=== PATIENT | female | born 1995 | race Caucasian/White ===

== ENCOUNTER 2018-10-14 20:50 | Emergency (ER) | payer MEDICAID ==
[~2018-10-14] VITALS: Ht 162.6 cm; Wt 86.0 kg
[2018-10-14 20:57] VITALS: BP 108/73
[2018-10-14 22:08] LABS: BASOPHILS % (AUTO) 1 % (0-1); EOSINOPHILS # (AUTO) 0.06 x10^3/uL (0-0.4); EOSINOPHILS % (AUTO) 1 % (1-7); LYMPHOCYTES # (AUTO) 2.91 x10^3/uL (1-3.4); LYMPHOCYTES % (AUTO) 39 % (22-44); MD NO; MEAN CORPUSCULAR HEMOGLOBIN 26.2 pg (27.0-34.8); MEAN CORPUSCULAR HGB CONC 32.7 g/dL (32.4-35.8); MEAN PLATELET VOLUME 8.1 fL (7.4-10.4); MONOCYTES # (AUTO) 0.44 x10^3/uL (0.2-0.8); MONOCYTES % (AUTO) 6 % (2-9); NEUTROPHILS # (AUTO) 3.98 x10^3/uL (1.8-6.8); NEUTROPHILS % (AUTO) 53 % (42-75); PLATELET COUNT 345 x10^3/uL (130-400); RED BLOOD COUNT 4.64 x10^6/uL (3.82-5.3); RED CELL DISTRIBUTION WIDTH 16.3 % (9.6-15.2)
--- NOTE | 2018-10-14 22:13 | NUR ---
TP RN: SOC TELEPSYCH REQUESTED
[2018-10-14 22:17] LABS: ALBUMIN 3.3 g/dL (3.4-5.0); ANION GAP 6 mmol/L (5-15); CALCIUM 8.4 mg/dL (8.5-10.1); CHLORIDE 113 mmol/L (98-107)
[2018-10-14 22:23] LABS: ALANINE AMINOTRANSFERASE 36 U/L (12-78); ALKALINE PHOSPHATASE 89 U/L (45-117); BILIRUBIN,TOTAL 0.3 mg/dL (0.2-1.0); TOTAL PROTEIN 7.2 g/dL (6.4-8.2)
[2018-10-14 22:30] LABS: ACETAMINOPHEN < 2 mcg/mL (10-30); SALICYLATE LEVEL < 1.7 mg/dL (2.8-20.0)
--- NOTE | 2018-10-14 22:33 | NUR ---
ZENON (SISTER) [phone] CARA (FRIEND) [phone]
--- NOTE | 2018-10-14 23:09 | NUR ---
PT RESTING ON GURNEY, NO NEEDS EXPRESSED AT THIS TIME. PT AWARE OF NEED OF UA.
--- NOTE | 2018-10-15 00:02 | NUR ---
EMT'S AND SECURITY AT PT BEDSIDE. PT HIDING CELL PHONE AND SURGICAL SERVICES ASST IN CLEAVAGE, SECURITY GUARDS HOLDING PT ARMS, PT BIT CLAIMS COUNSEL ON FOREARM AND KICKED HER WELL. [facility] CALLED AND WILL RESPOND SOON A POSSIBLE.
--- NOTE | 2018-10-15 00:35 | NUR ---
[facility] AT BEDSIDE. PT MEDICALLY CLEARED. PT TAKEN INTO CUSTODY WITH [employer].
== END 2018-10-15 01:02 | disposition home or self-care (01) ==
LOC: ED 22:06
DX: F32.1 Major depressive disorder, single episode, moderate (principal); Z87.891 Personal history of nicotine dependence
CPT/HCPCS: 36415; 80053; 80307; 80329; 84703; 85025; 99284; G0480